=== PATIENT | male | born 1990 | race Caucasian/White ===

== ENCOUNTER 2022-01-24 10:08 | Emergency (ER) | payer BC ==
[~2022-01-24] VITALS: Ht 185.4 cm; Wt 127.5 kg
[2022-01-24 10:14] VITALS: BP 191/96
--- NOTE | 2022-01-24 10:28 | NUR ---
31/M PRESENTS TO ED WITH C/O DYSURIA AND HEMATURIA THAT STARTED THIS MORNING. PATIENT DENIES FLANK PAIN, FEVERS, CHILLS, ABD PAIN, N/V/D, STATES INITIALLY NOTICED HIS URINE WAS "PINK" THIS MORNING, AND SINCE HAS NOTICED MORE BLOOD. PATIENT DENIES DISCHARGE, RASH OR SORES, DENIES CONCERNS FOR STDS.
[2022-01-24] MEDS ORDERED: CEPH-588 PO (11:36)
--- NOTE | 2022-01-24 11:44 | NUR ---
Patient discharged with v/s stable. Written and verbal after care instructions ABOUT URINARY TRACT INFECTION given and explained. Patient alert, oriented and verbalized understanding of instructions. Ambulatory with steady gait. All questions addressed prior to discharge. ID band removed. Patient advised to follow up with PMD. Rx of KEFLEX given. Patient educated on indication of medication including possible reaction and side effects. Opportunity to ask questions provided and answered.
[2022-01-24 14:26] LABS: APPEARANCE,URINE CLOUDY (CLEAR); BILIRUBIN,URINE 2+ (NEGATIVE); BLOOD, URINE 3+ (NEGATIVE); COLOR,URINE RED (YELLOW); LEUKOCYTE ESTERASE ,URINE 2+ (NEGATIVE); NITRITE, URINE POSITIVE (NEGATIVE); UGLUCOSE NEGATIVE (NEGATIVE)
[2022-01-24 14:44] LABS: RBC,URINE 11-20 (MOD) /HPF (0-5)
[2022-01-24 14:46] LABS: OTHER CASTS, URINE None Seen /LPF (None Seen)
== END 2022-01-24 11:44 | disposition home or self-care (01) ==
LOC: MED 10:08
DX: N39.0 Urinary tract infection, site not specified (principal); I10 Essential (primary) hypertension; F12.90 Cannabis use, unspecified, uncomplicated; Z72.89 Other problems related to lifestyle; Z79.899 Other long term (current) drug therapy; Z98.890 Other specified postprocedural states
CPT/HCPCS: 81001; 87086; 87491; 99283